=== PATIENT | male | born 1990 | race Caucasian/White ===

== ENCOUNTER 2016-07-11 06:15 | Outpatient (CLI) | payer OTHER | END 2016-07-11 06:16 | disposition critical access hospital (66) | DX: R11.2 Nausea with vomiting, unspecified (principal); R68.83 Chills (without fever); R52 Pain, unspecified | CPT/HCPCS: A0425; A0427 ==

== ENCOUNTER 2016-07-11 06:32 | Emergency (ER) | payer OTHER ==
[2016-07-11] MEDS ORDERED: ONDANSETRON ODT 4 MG TABLET TL STA (06:42)
[2016-07-11] MEDS ORDERED: ONDANSETRON ODT 4 MG TABLET ONE (06:47)
[2016-07-11] MEDS ORDERED: SODIUM CHLORIDE 0.9% 1,000 ML IV ONE (07:28)
[2016-07-11] MEDS ORDERED: KETOROLAC 30 MG/ML VIAL IVP STA (07:28)
[2016-07-11] MEDS ORDERED: LORazepam 2 MG/ML SYRINGE IVP STA (07:28)
[2016-07-11] MEDS ORDERED: HYDROmorphone 1 MG/ML SYRINGE IVP STA ×2 (07:28→08:54)
[2016-07-11] MEDS ORDERED: PROMETHAZINE INJ 12.5 MG in SODIUM CHLORIDE 0.9% 50 ML IV STA (07:28)
--- NOTE | 2016-07-11 07:30 | ED Physician Documentation ---
PD HPI NVD - Stated complaint Stated Complaint: N/V, - Chief complaint Chief Complaint: Abd Pain - History obtained from History obtained from: Patient - History of Present Illness Timing - onset: Last night Timing - duration: Days (1) Timing - details: Gradual onset, Still present Associated symptoms: Abdominal pain, Near syncope / syncope, Hematuria (after prostate biopsy yesterday). No: Fever, Loss of appetite, Dysuria Contributing factors: No: Sick contact, Bad food, Travel, Recent antibiotics Worsened by: Eating Recently seen: Surgery (yesterday, Urology at , with prostate biopsies and cultures. Patient is out of pain meds with next Rx available Thursday (He says he thought it was a planned "holiday" for the meds and was supposed to be out of them for couple of days; he denies taking extra or double dosing).) Review of Systems Constitutional: denies: Fever, Chills Nose: denies: Rhinorrhea / runny nose, Congestion Throat: denies: Sore throat Respiratory: denies: Cough PD PAST MEDICAL HISTORY - Past Medical History Past Medical History: Yes Cardiovascular: None Respiratory: None Neuro: None : Other (testicular cancer with prior surgery and lymph node dissection. ) - Past Surgical History Past Surgical History: Yes - Present Medications Home Medications: Ambulatory Orders Medication Instructions Recorded Confirmed oxyCODONE [Roxicodone] 10 mg PO Q4H PRN #20 tablet 01/09/16 Lorazepam [Ativan] 1 mg PO Q8H PRN #12 tablet 07/11/16 Naproxen 375 mg PO BID #15 tablet 07/11/16 Oxycodone HCl/Acetaminophen 1 each PO Q6HR PRN #15 tablet 07/11/16 [Oxycodone-Acetaminophen 10-325] Promethazine [Phenergan] 25 mg PO Q6H PRN #20 tab 07/11/16 - Allergies Allergies/Adverse Reactions: Allergies Allergy/AdvReac Type Severity Reaction Status Date / Time levofloxacin [From Levaquin] Allergy Unknown Verified 01/09/16 14:08 - Social History Does the pt smoke?: Yes Smoking Status: Current every day smoker Does the pt drink ETOH?: No Does the pt have substance abuse?: Yes Substance Use and Type: Prescription Pills - Immunizations Immunizations are current?: Yes PD ED PE NORMAL - Vitals Vital signs reviewed: Yes - General General: Alert and oriented X 3, Well developed/nourished, Other (in pain, hyperventilating, some shakiness. ) - HEENT HEENT: Atraumatic, Pharynx benign - Neck Neck: Supple, no meningeal sign, No adenopathy - Cardiac Cardiac: RRR, No murmur - Respiratory Respiratory: No respiratory distress, Clear bilaterally - Abdomen Abdomen: Normal bowel sounds, Soft, Non distended, No organomegaly, Other ( suprapubic area without percussion tenderness) - Male Male : Other (artificial right testicle. No scrotal swelling nor hematoma felt. left testicle normal. ) - Back Back: No CVA TTP - Derm Derm: Normal color, Warm and dry - Neuro Neuro: Alert and oriented X 3, No motor deficit, Normal speech Results - Vitals Vitals: Oxygen O2 Source Room air - Labs Labs: Laboratory Tests 07/11/16 07/11/16 07:48 07:48 WBC 8.8 RBC 5.24 Hgb 15.6 Hct 45.4 MCV 86.6 MCH 29.7 MCHC 34.4 RDW 13.4 Plt Count 255 MPV 9.2 Neut # 7.4 H Lymph # 1.1 L Coal # 0.3 Eos # 0.0 Baso # 0.0 Absolute Nucleated RBC 0.00 Nucleated RBCs 0.0 Sodium 141 Potassium 3.6 Chloride 105 Carbon Dioxide 26 Anion Gap 10.0 BUN 11 Creatinine 0.8 Estimated GFR (MDRD) 116 Glucose 111 H Calcium 9.9 Total Bilirubin 0.7 AST 29 ALT 39 Alkaline Phosphatase 69 Total Protein 7.9 Albumin 4.9 Globulin 3.0 Albumin/Globulin Ratio 1.6 Lipase 27 PD MEDICAL DECISION MAKING - ED course Complexity details: reviewed results, considered differential (recent prostatitis chronic with procedure yesterday for biopsies leading to increased pain and also out of ususal meds since yesterday. ), d/w patient Departure - Departure Disposition: 01 Home, Self Care Clinical Impression: Prostatic pain, Post-op pain, Opioid withdrawal Nausea & vomiting Qualifiers: Vomiting type: unspecified Vomiting Intractability: non-intractable Qualified Code(s): R11.2 - Nausea with vomiting, unspecified Condition: Stable Record reviewed to determine appropriate education?: Yes Instructions: ED Nausea Vomiting Follow-Up: Rolly Baez MD [Primary Care Provider] - Prescriptions: Oxycodone HCl/Acetaminophen [Oxycodone-Acetaminophen 10-325] 1 each PO Q6HR PRN #15 tablet PRN Reason: Pain Lorazepam [Ativan] 1 mg PO Q8H PRN #12 tablet PRN Reason: Anxiety Naproxen 375 mg PO BID #15 tablet Promethazine [Phenergan] 25 mg PO Q6H PRN #20 tab PRN Reason: Nausea / Vomiting Comments: Small frequent fluids. Can take Naproxen twice daily for a week to help with the inflammation from yesterday's biopsy/procedure. Promethazine as needed for nausea. Continue the tapering of your pain medications, down to 4-5 tablets daily over the weekend, then to 4 daily when you get your Prescription refill on Thursday. Ativan 1 mg twice daily as needed once or twice daily, for some withdrawal symptoms or sleep/anxiety but not intended for longer term. Follow up with PMD/Urology as planned. Forms: Activity restrictions Discharge Date/Time: 07/11/16 09:09
[2016-07-11] MEDS ORDERED: KETOROLAC 30 MG/ML VIAL ONE (07:41)
[2016-07-11] MEDS ORDERED: HYDROmorphone 1 MG/ML SYRINGE ONE ×2 (07:41→08:55)
[2016-07-11] MEDS ORDERED: PROMETHAZINE 25 MG/1 ML VIAL ONE (07:41)
[2016-07-11] MEDS ORDERED: LORazepam 2 MG/ML SYRINGE ONE (07:42)
[2016-07-11 08:02] LABS: BASOPHILS % (AUTO) 0.3 %; EOSINOPHILS % (AUTO) 0.3 %; HCT - HEMATOCRIT 45.4 % (42.0-52.0); HGB - HEMOGLOBIN 15.6 g/dL (14.0-18.0); LYMPHOCYTES # (AUTO) 1.1 10^3/uL (1.5-3.5); LYMPHOCYTES % (AUTO) 12.7 %; MEAN CORPUSCULAR HEMOGLOBIN 29.7 pg (27.0-31.0); MEAN CORPUSCULAR HGB CONC 34.4 g/dL (32.0-36.0); MEAN CORPUSCULAR VOLUME 86.6 fL (80.0-94.0); MEAN PLATELET VOLUME 9.2 fL (7.4-11.4); MONOCYTES # (AUTO) 0.3 10^3/uL (0.0-1.0); NEUTROPHILS # (AUTO) 7.4 10^3/uL (1.5-6.6); NEUTROPHILS % (AUTO) 83.7 %; RED BLOOD COUNT 5.24 10^6/uL (4.70-6.10); RED CELL DISTRIBUTION WIDTH 13.4 % (12.0-15.0); UNCORRECTED WHITE BLOOD COUNT 8.8 x10^3/uL; WHITE BLOOD COUNT 8.8 x10^3/uL (4.8-10.8)
[2016-07-11 08:13] LABS: ALBUMIN/GLOBULIN RATIO 1.6 (1.0-2.2); BILIRUBIN,TOTAL 0.7 mg/dL (0.2-1.0); CALCIUM 9.9 mg/dL (8.5-10.3); CREATININE 0.8 mg/dL (0.6-1.2); POTASSIUM 3.6 mmol/L (3.5-5.0); TOTAL PROTEIN 7.9 g/dL (6.7-8.2)
[2016-07-11 09:10] VITALS: BP 116/92
== END 2016-07-11 09:09 | disposition home or self-care (01) ==
LOC: EDUNIT# → ED 06:32
DX: R10.2 Pelvic and perineal pain (principal); R11.2 Nausea with vomiting, unspecified; G89.28 Other chronic postprocedural pain; F11.23 Opioid dependence with withdrawal; Z85.47 Personal history of malignant neoplasm of testis; F17.200 Nicotine dependence, unspecified, uncomplicated
CPT/HCPCS: 36415; 80053; 83690; 85025; 96361; 96365; 96375; 96376; 99284; J1170; J2060; Q0162

== ENCOUNTER 2016-10-18 13:59 | Emergency (ER) | payer OTHER ==
[2016-10-18 14:19] LABS: BASOPHILS % (AUTO) 0.4 %; EOSINOPHILS % (AUTO) 0.3 %; HCT - HEMATOCRIT 45.9 % (42.0-52.0); LYMPHOCYTES # (AUTO) 1.3 10^3/uL (1.5-3.5); LYMPHOCYTES % (AUTO) 12.3 %; MEAN CORPUSCULAR HEMOGLOBIN 29.4 pg (27.0-31.0); MEAN CORPUSCULAR HGB CONC 34.8 g/dL (32.0-36.0); MEAN CORPUSCULAR VOLUME 84.6 fL (80.0-94.0); MEAN PLATELET VOLUME 7.7 fL (7.4-11.4); MONOCYTES # (AUTO) 0.3 10^3/uL (0.0-1.0); MONOCYTES % (AUTO) 2.6 %; NEUTROPHILS # (AUTO) 8.8 10^3/uL (1.5-6.6); NEUTROPHILS % (AUTO) 84.4 %; NUCLEATED RED BLOOD CELLS AUTO 0.1 /100WBC; RED BLOOD COUNT 5.42 10^6/uL (4.70-6.10); RED CELL DISTRIBUTION WIDTH 13.4 % (12.0-15.0); UNCORRECTED WHITE BLOOD COUNT 10.4 x10^3/uL; WHITE BLOOD COUNT 10.4 x10^3/uL (4.8-10.8)
[2016-10-18] MEDS ORDERED: HYDROmorphone 1 MG/ML SYRINGE IVP STA (14:19)
[2016-10-18] MEDS ORDERED: SODIUM CHLORIDE 0.9% 1,000 ML IV ONE (14:20)
[2016-10-18] MEDS ORDERED: SODIUM CHLORIDE FLUSH 0.9% 10 ML SYRINGE IVP ONE (14:28)
[2016-10-18] MEDS ORDERED: HYDROmorphone 1 MG/ML SYRINGE ONE (14:28)
--- NOTE | 2016-10-18 14:32 | ED Physician Documentation ---
History of Present Illness - Stated complaint Stated Complaint: SYNCOPE - Chief complaint Chief Complaint: Neuro - History obtained from History obtained from: Family - History of Present Illness Timing: Last night - Additonal information Additional information: Patient is a 26-year-old male with a history of prostate cancer and chronic prostatitis. Is on chronic pain medication, 60-70 mg of oxycodone daily for the past several years. Ran out of his medication 2 days ago, started having vomiting and syncope since that time. Fianc states that this is normal for him when he is going through withdrawal. Patient is unable to give history at this time. Review of Systems Unable to obtain: AMS PD PAST MEDICAL HISTORY - Past Medical History Past Medical History: Yes Cardiovascular: None Respiratory: None Neuro: None : Other Other Past Medical History: testicular ca - Past Surgical History Past Surgical History: Yes - Present Medications Home Medications: Ambulatory Orders Medication Instructions Recorded Confirmed oxyCODONE [Roxicodone] 10 mg PO Q4H PRN #20 tablet 01/09/16 Lorazepam [Ativan] 1 mg PO Q8H PRN #12 tablet 07/11/16 Naproxen 375 mg PO BID #15 tablet 07/11/16 Oxycodone HCl/Acetaminophen 1 each PO Q6HR PRN #15 tablet 07/11/16 [Oxycodone-Acetaminophen 10-325] Promethazine [Phenergan] 25 mg PO Q6H PRN #20 tab 07/11/16 oxyCODONE [Roxicodone] 5 - 10 mg PO Q6H PRN #20 tablet 10/18/16 - Allergies Allergies/Adverse Reactions: Allergies Allergy/AdvReac Type Severity Reaction Status Date / Time levofloxacin [From Levaquin] Allergy Unknown Verified 01/09/16 14:08 - Social History Does the pt smoke?: Yes Smoking Status: Current every day smoker Does the pt drink ETOH?: No Does the pt have substance abuse?: Yes - Immunizations Immunizations are current?: Yes PD ED PE NORMAL - Vitals Vital signs reviewed: Yes - General General: No acute distress, Well developed/nourished, Other (Eyes closed, responds to pain, response to voice) - HEENT HEENT: PERRL, Moist mucous membranes, Pharynx benign - Neck Neck: Supple, no meningeal sign - Cardiac Cardiac: RRR, Strong equal pulses - Respiratory Respiratory: No respiratory distress, Clear bilaterally - Abdomen Abdomen: Soft, Non tender - Derm Derm: Warm and dry - Extremities Extremities: No edema, No calf tenderness / cord - Neuro Neuro: No motor deficit, No sensory deficit Results - Vitals Vitals: Vital Signs - 24 hr 10/18/16 10/18/16 10/18/16 14:00 14:29 14:50 Temperature 37.4 C Heart Rate 80 72 Respiratory 28 H 24 Rate Blood Pressure 157/88 H 157/88 H O2 Saturation 100 100 Oxygen O2 Source Room air - EKG (time done) 1422 Rate: Rate (enter#) (74) Rhythm: NSR [place]: Normal Intervals: Normal IN QRS: Normal Ischemia: ST elevation c/w repol - Labs Labs: Laboratory Tests 10/18/16 10/18/16 14:13 14:13 WBC 10.4 RBC 5.42 Hgb 16.0 Hct 45.9 MCV 84.6 MCH 29.4 MCHC 34.8 RDW 13.4 Plt Count 284 MPV 7.7 Neut # 8.8 H Lymph # 1.3 L Major # 0.3 Eos # 0.0 Baso # 0.0 Absolute Nucleated RBC 0.01 Nucleated RBCs 0.1 Sodium 140 Potassium 3.5 Chloride 103 Carbon Dioxide 25 Anion Gap 12.0 BUN 9 Creatinine 0.9 Estimated GFR (MDRD) 101 Glucose 109 H Calcium 10.5 H Total Bilirubin 0.5 AST 37 ALT 43 Alkaline Phosphatase 73 Total Protein 9.2 H Albumin 5.4 Globulin 3.8 Albumin/Globulin Ratio 1.4 Lipase 41 Salicylates < 6.0 Acetaminophen < 10 L Ethyl Alcohol < 5.0 PD MEDICAL DECISION MAKING - ED course Complexity details: reviewed results, re-evaluated patient, considered differential, d/w patient, d/w family, d/w PMD ED course: Patient is a 26-year-old male who is been going through narcotic withdrawal for the past 2 days, came in after a syncopal event. After rereading his notes from [facility] and [facility], has been seen several times for same with similar presentations. Was given a milligram of Dilaudid here and symptoms resolved. Discussed the case with his primary care provider, who recommends that we write a small prescription for him to cover him through the weekend and follow-up on Thursday for further evaluation and care. I expressed my concern regarding the dramatic effect of narcotic withdrawal on this young gentleman as well as the high doses of pain medication he has been on for several years, his doctor states that he is "a straight shooter" and is comfortable prescribing his meds. We will have him follow-up with his doctor. Patient and family counseled regarding signs and symptoms for which I believe and urgent re-evaluation would be necessary. Patient with good understanding of and agreement to plan and is comfortable going home at this time This document was made in part using voice recognition software. While efforts are made to proofread this document, sound alike and grammatical errors may occur. Departure - Departure Clinical Impression: Opioid withdrawal Condition: Good Instructions: ED Withdrawal Narcotic Follow-Up: your,doctor in 2 days [Other] Prescriptions: oxyCODONE [Roxicodone] 5 - 10 mg PO Q6H PRN #20 tablet PRN Reason: pain Comments: Make sure to follow up with Dr. Baez on Thursday for further pain medication. You may benefit from seeing pain management for alternative pain therapies as well. Do not drink alcohol or drive while on narcotic pain medicine. Note that many narcotic pain relievers also contain tylenol/acetaminophen. Please ensure that your total dose of acetaminophen from all sources does not exceed 3 grams (3000mg) per day. You may constipated on this medication, take a stool softener such as "Colace" twice a day while you are on it. Also recommend a [id number] laxative such as senna or MiraLAX any day that you do not have a bowel movement. If you received narcotic pain medication in the emergency department, do not drive or operate machinery for the next 24 hours.
[2016-10-18 14:53] LABS: ACETAMINOPHEN < 10 ug/mL (10-30); ALBUMIN/GLOBULIN RATIO 1.4 (1.0-2.2); BILIRUBIN,TOTAL 0.5 mg/dL (0.2-1.0); BUN - BLOOD UREA NITROGEN 9 mg/dL (6-20); CALCIUM 10.5 mg/dL (8.5-10.3); CARBON DIOXIDE - CO2 25 mmol/L (21-32); CHLORIDE 103 mmol/L (101-111); CREATININE 0.9 mg/dL (0.6-1.2); GFR - MDRD 101 (>89); GLUCOSE 109 mg/dL (70-100); LIPASE 41 U/L (22-51); POTASSIUM 3.5 mmol/L (3.5-5.0); SALICYLATE < 6.0 mg/dL; SODIUM 140 mmol/L (135-145); TOTAL PROTEIN 9.2 g/dL (6.7-8.2)
[2016-10-18] MEDS ORDERED: oxyCODONE 5 MG TABLET PO STA (15:05)
[2016-10-18] MEDS ORDERED: oxyCODONE 5 MG TABLET ONE (15:12)
[2016-10-18 15:24] VITALS: BP 144/90
[2016-10-18 15:27] LABS: BILIRUBIN,URINE NEGATIVE (NEGATIVE)
[2016-10-18 15:29] LABS: UA CHARGE (STRIP ONLY) YES; UR CULTURE IF IND NOT INDICATED
== END 2016-10-18 15:25 | disposition home or self-care (01) ==
LOC: ED 13:59
DX: F11.23 Opioid dependence with withdrawal (principal); Z79.899 Other long term (current) drug therapy; Z85.46 Personal history of malignant neoplasm of prostate; Z85.47 Personal history of malignant neoplasm of testis; F17.200 Nicotine dependence, unspecified, uncomplicated
CPT/HCPCS: 36415; 80053; 80306; 80307; 80320; 80329; 81003; 83690; 85025; 93005; 96361; 96374; 99284; A9270; J1170; 81001; 87086